=== PATIENT | male | born 1945 | race Two or more races ===

== ENCOUNTER → 2020-05-20 | Emergency (ER) | payer OTHER ==
[~2020-05-20] VITALS: Ht 177.8 cm; Wt 90.7 kg
[~2020-05-20] MED LIST: CLONAZEPAM0.5 MG PO; NASAL MIST126 ML; PRAVASTATIN SOD10 MG; TYLENOL325 MG PO
== END | disposition home or self-care (01) ==
LOC: ER 13:08
DX: R53.81 Other malaise (principal); F41.8 Other specified anxiety disorders; Z76.0 Encounter for issue of repeat prescription